=== PATIENT | male | born 1965 | race Caucasian/White ===

== ENCOUNTER 2017-11-20 06:42 | Day surgery (SDC) | payer OTHER ==
[2017-11-20 07:07] VITALS: BMI 33.5
[2017-11-20] MEDS ORDERED: Lactated Ringer's 500 ML IV ONE (09:52)
[2017-11-20] MEDS ORDERED: Propofol 10 mg/ml Inj (20 ML) ONE (09:58)
[2017-11-20] MEDS ORDERED: Midazolam 2 MG/2 ML VIAL ONE (09:58)
[2017-11-20 10:47] VITALS: TEMP 96; O2SAT 100
[2017-11-20 12:53] VITALS: BP 142/90; PULSE 74; RESP 20
== END 2017-11-20 11:50 | disposition home or self-care (01) ==
LOC: C.ENDO 06:42
PROVIDERS: ATTEND Internal Medicine
DX: K63.5 Polyp of colon (principal); K57.30 Diverticulosis of large intestine without perforation or abscess without bleeding; K64.8 Other hemorrhoids; K92.1 Melena; Z87.19 Personal history of other diseases of the digestive system; E11.9 Type 2 diabetes mellitus without complications
CPT/HCPCS: 45381; 45385; 82948; 88305; J2250; J2704; J7120